=== PATIENT | male | born 1980 | race Caucasian/White ===

== ENCOUNTER 2016-08-22 13:21 | Day surgery (SDC) | payer OTHER ==
[2016-08-22] MEDS ORDERED: IV START KIT ONE (13:41)
[2016-08-22] MEDS ORDERED: LACTATED RINGERS 1,000 ML ONE ×2 (13:41→19:06)
[2016-08-22] MEDS ORDERED: LACTATED RINGERS 1,000 ML IV SCH ×3 (14:00→19:23)
[2016-08-22] MEDS ORDERED: LIDOCAINE 1% 2 ML VIAL ID PRN (14:00)
[2016-08-22] MEDS ORDERED: CEFAZOLIN SODIUM 2 GRAM PREMIX 2 G in Premix (D5W) 100 ml 1 EACH IV PRN (14:00)
[2016-08-22] MEDS ORDERED: CEFAZOLIN SODIUM 2 GRAM PREMIX 100 ML IV ONE (14:08)
[2016-08-22] MEDS ORDERED: LIDOCAINE 1%/EPI 1:100,000 (MULTI DOSE) 30 ML VIAL ONE (15:56)
[2016-08-22] MEDS ORDERED: SUCCINYLCHOLINE CHL 20 MG/ML DOSE ONE (16:51)
[2016-08-22] MEDS ORDERED: FENTANYL 250 MCG/5 ML AMP ONE (16:52)
[2016-08-22] MEDS ORDERED: MIDAZOLAM HCL 1 MG/ML 2ML VIAL ONE (16:52)
[2016-08-22] MEDS ORDERED: PROPOFOL 20 ML IV ONE (16:58)
[2016-08-22] MEDS ORDERED: ONDANSETRON 4 MG/2ML 2 ML VIAL IV PRN ×2 (17:34→19:23)
[2016-08-22] MEDS ORDERED: ATROPINE SULFATE 0.4 MG/1 ML VIAL IV PRN (17:34)
[2016-08-22] MEDS ORDERED: MEPERIDINE 25 MG/ML SYRINGE IV PRN (17:34)
[2016-08-22] MEDS ORDERED: PROMETHAZINE HCL 25 MG/ML VIAL IM PRN (17:34)
[2016-08-22] MEDS ORDERED: FENTANYL 100 MCG/2 ML VIAL IV PRN (17:34)
[2016-08-22] MEDS ORDERED: NEOSTIGMINE METHYLSULFATE 1 MG/ML DOSE ONE (18:16)
[2016-08-22] MEDS ORDERED: GLYCOPYRROLATE 0.2 MG/ML 1ML VIAL ONE (18:16)
--- NOTE | 2016-08-22 18:29 | PCMBPN ---
Brief Post Op Note: Date of Procedure: 08/22/16 Preoperative Diagnosis: 1. RIH Postoperative Diagnosis: 1. Same Procedure: Laparoscopic RIH repair with mesh Surgeon: Cary Jules MD Assist:Halle Alarcon Anesthesia: GETA Findings: see dictation Condition: stable Complications: none IV Fluids: see anesthesia report Urine Output: see anesthesia report Estimated Blood Loss: 5 mLs Tourniquet Time: N/A Specimens: N/A Implants: 10x15 laparoscopic self fixating mesh Drains: [N/A]
[2016-08-22] MEDS: HYDROMORPHONE HCL 1 MG/ML SYRINGE IV PRN ×3 (18:58→19:17)
[2016-08-22] MEDS ORDERED: HYDROMORPHONE HCL 1 MG/ML SYRINGE ONE (19:15)
[2016-08-22] MEDS ORDERED: HYDROMORPHONE HCL 1 MG/ML SYRINGE IV PRN (19:23)
[2016-08-22] MEDS ORDERED: HYDROMORPHONE HCL 0.5 MG/0.5 ML SYRINGE IV PRN (19:50)
[2016-08-22] MEDS: OXYCODONE/ACETAMINOPHEN 5/325 MG TABLET PO PRN ×2 (21:30→23:03)
[2016-08-22 23:30] VITALS: BP 119/78
--- NOTE | 2016-08-24 06:45 | OP ---
Naldo Ray [id number] DATE OF SERVICE: 08/22/2016 PREPROCEDURE DIAGNOSIS: Right inguinal hernia. POSTPROCEDURE DIAGNOSIS: Right inguinal hernia. PROCEDURE PERFORMED: Right inguinal hernia repair laparoscopically with mesh. SURGEON: Dr. Cary Jules. OPHTHALMIC TECHNOLOGIST: Halle Alarcon. ANESTHESIA: General. FINDINGS: Right inguinal hernia reducible laparoscopically and mesh placed laparoscopically. TECHNIQUE: The patient was brought back to the operating room and placed under general anesthesia. The scrotum, groin, and lower abdomen were prepped and draped in sterile surgical fashion. Local anesthetic was placed just inferior to the umbilicus and a 15 blade scalpel was used to make a less than 3 cm transverse incision. Electrocautery was used to cut through the subcutaneous tissue down to the level of the fascia. The anterior rectus sheath was opened with electrocautery on the right side and the rectus muscle was pushed to the side as a spacer port was placed anterior to the posterior rectus sheath and slid down to the pubic tubercle. Once down to the pubic tubercle the camera was placed in the port and the balloon was inflated about 30 times, once it was up and it looked like it was in good position it was held for about 3 seconds then the spacer balloon that holds the port in place was inflated and then the balloon was deflated. The camera was taken out and then the CO2 was turned on to 15 mmHg. The camera was reinserted. Two additional ports were placed in the midline above the pubic tubercle under direct visualization and then two Kittner's were used to dissect bluntly the peritoneum down from the pubic tubercle all the way out to the superior iliac spine and once all of that was kind of dissected down fairly easily two graspers were taken and dissected the hernia down. There was a bit of cord fat along with hernia sac. Hernia sac was taken down. The cord was easily visualized and then there was also a lot of fatty tissue with blood vessels along with it that I wanted to preserve, but there was some extraneous that kind of looked a little bit like hernia sac around that that took a little bit of time to dissect down and separate from those blood vessels. I did not want to take those down, I wanted to preserve those, so I took all the extraneous tissue out, preserved all the blood vessels and the spermatic cord, and once all of that was skeletonized I made sure everything was out of the way and everything looked nice and clean and in position. I took a 10 x 15 laparoscopic self fixating mesh, marked it for positioning, placed it in the space, unrolled it, and fixed it into position so that it was widely around where the hernia was, it covered where the femoral hernia would be and where a direct hernia would be, as well as the indirect spot. Made sure all the peritoneum was down and none of the peritoneum was underneath where the mesh was and that everything was in good position. The mesh was nice and flat in position. Then I deflated the cavity, removed the ports, and closed the anterior rectus sheath with 0 Vicryl and then closed the skin incisions with 4-0 Monocryl. Steri-Strips were applied. The patient was awakened and returned to the recovery room in stable condition. All needle, instrument, and sponge counts were correct at the end of the case. JOB: [id number]
== END 2016-08-22 23:15 | disposition home or self-care (01) ==
LOC: SDC 13:21 → MS 20:48 → SDC 23:15
PROVIDERS: ATTEND Surgery
PROC: 0YU54JZ Supplement Right Inguinal Region with Synthetic Substitute, Percutaneous Endoscopic Approach (ICD-10-PCS; principal; 2016-08-22)
DX: K40.90 Unilateral inguinal hernia, without obstruction or gangrene, not specified as recurrent (principal); K58.9 Irritable bowel syndrome, unspecified; Z88.5 Allergy status to narcotic agent; X50.9XXA Other and unspecified overexertion or strenuous movements or postures, initial encounter; Y93.89 Activity, other specified; Y92.096 Garden or yard of other non-institutional residence as the place of occurrence of the external cause
CPT/HCPCS: 49650; J1170 ×3; J3010; A9270 ×2; J2250; J2001; J7120 ×3; J0690 ×2